=== PATIENT | female | born 1975 | race African-American/Black ===

== ENCOUNTER → 2017-09-19 17:12 | Outpatient (CLI) | payer BC | END | disposition home or self-care (01) | LOC: D.MAMMO 10:15 | DX: Z12.31 Encounter for screening mammogram for malignant neoplasm of breast (principal) ==

== ENCOUNTER → 2018-08-28 08:32 | Outpatient (CLI) | payer BC | END | disposition home or self-care (01) | LOC: D.MRI 08-21 07:00 | DX: M54.5 Low back pain (principal) ==

== ENCOUNTER 2018-10-16 08:00 | Outpatient (CLI) | payer BC | END 2018-10-16 09:00 | disposition home or self-care (01) | LOC: D.MAMMO 08:00 | PROVIDERS: ATTEND Emergency Medicine | DX: Z12.31 Encounter for screening mammogram for malignant neoplasm of breast (principal) ==